=== PATIENT | female | born 1990 | race Caucasian/White ===

== ENCOUNTER 2021-05-15 08:15 | Emergency (ER) | payer OTHER ==
[2021-05-15 09:21] LABS: HEMOGLOBIN 14.7 gm/dl (12.3-15.3); RED BLOOD COUNT 4.67 M/UL (4.00-5.10); WHITE BLOOD COUNT 8.7 K/UL (4.5-11.0)
[2021-05-15 09:39] LABS: BUN/CREATININE RATIO 14 (0-10)
== END 2021-05-15 10:43 | disposition home or self-care (01) ==
LOC: ER1 08:15
PROVIDERS: Emergency Medicine
DX: R07.9 Chest pain, unspecified (principal); Z90.49 Acquired absence of other specified parts of digestive tract; Z98.51 Tubal ligation status
CPT/HCPCS: 71045; 80053; 82550; 82553; 83874; 84484; 85025; 85379; 93005; 99285